=== PATIENT | male | born 1960 | race African-American/Black ===

== ENCOUNTER 2024-10-15 08:37 | Outpatient (CLI) | payer OTHER, SELFPAY ==
--- NOTE | ~2024-10-15 | MR_ITS ---
EXAMINATION: MR lumbar spine wo con DATE: 10/15/2024 09:17 INDICATION: Neuralgia of abdomen. TECHNIQUE: Magnetic resonance imaging (MRI) of the lumbar spine was performed without intravenous con trast. Sequences included sagittal T2-weighted FSE, sagittal T2-weighted FS FSE, sagittal T1-weighted FSE, and axial T2-weighted FSE. COMPARISON: None FINDINGS: There is 5 degrees dextrocurvature of thoracolumbar spine. Vertebral body heights are villa l. There is mildly decreased disc height at L4-L5 and L5-S1. The distal spinal cord signal intensity is normal. The conus medullaris is at L1-L2. There is a 10 mm cyst in right kidney. The following dis c levels are specifically discussed: L1-L2: The disc does not extend beyond the endplate margin. There is mild bilateral facet joint osteo arthritis. There is no neural foraminal stenosis. There is no central canal stenosis. L2-L3: The disc does not extend beyond the endplate margin. There is mild bilateral facet joint osteo arthritis. There is no neural foraminal stenosis. There is no central canal stenosis. L3-L4: The disc does not extend beyond the endplate margin. There is moderate right and mild left fac et joint osteoarthritis. There is no neural foraminal stenosis. There is no central canal stenosis. L4-L5: The disc is bulging and has an annular fissure. There is severe bilateral facet joint osteoart hritis. There is mild bilateral neural foraminal stenosis. There is mild central canal stenosis. L5-S1: The disc is bulging and has an annular fissure. There is severe bilateral facet joint osteoart hritis. There is mild right and moderate left neural foraminal stenosis. There is mild central canal stenosis. IMPRESSION: 1. Moderate left neural foraminal stenosis at L5-S1. Otherwise mild lumbar spondylosis. Reviewed, dictated and finalized at location B. IMPRESSION: 1. Moderate left neural foraminal stenosis at L5-S1. Otherwise mild lumbar spon dylosis.
--- NOTE | ~2024-10-15 | MR_ITS ---
EXAMINATION: MR thoracic spine wo con DATE: 10/15/2024 09:12 INDICATION: Neuralgia of abdomen. TECHNIQUE: Magnetic resonance imaging (MRI) of the thoracic spine was performed without intravenous c ontrast. COMPARISON: None FINDINGS: Alignment is normal. Vertebral body heights are normal. Intervertebral disc heights are nor mal. The discs does not extend beyond the endplate margins. There is multilevel mild facet joint oste oarthritis. On the right, there is mild neural foraminal stenosis at T4-T5. On the left, there is mil d neural foraminal stenosis at T1-T2 and T3-T4. No central canal stenosis. The spinal cord signal int ensity is normal. IMPRESSION: 1. Mild thoracic spondylosis. Reviewed, dictated and finalized at location B.
== END 2024-10-15 08:38 | disposition home or self-care (01) ==
LOC: MICIMG 08:39
PROVIDERS: PCP Family Medicine; Visit Provider Nurse Practitioner Family
DX: M43.06 Spondylolysis, lumbar region (principal); M43.04 Spondylolysis, thoracic region; M48.07 Spinal stenosis, lumbosacral region
CPT/HCPCS: 72146; 72148